=== PATIENT | female | born 1990 ===

== ENCOUNTER 2018-12-02 11:58 | Emergency (ER) | payer OTHER ==
[2018-12-02 12:12] VITALS: O2SAT 100
[2018-12-02] MEDS ORDERED: Sodium Chloride 0.9% 1,000 ML IV STA (13:01)
[2018-12-02 13:56] LABS: BASO % 0.4 % (0.0-2.0); EOS % 0.3 % (0.0-4.0); LYMPH # 2.8 K/uL (1.0-4.3); LYMPH % 30.3 % (20.0-40.0); MEAN CORPUSCULAR HEMOGLOBIN 30.3 pg (27.0-31.0); MEAN CORPUSCULAR HGB CONC 33.7 g/dL (33.0-37.0); MEAN PLATELET VOLUME 8.1 fl (7.2-11.7); MONO % 10.3 % (0.0-10.0); NEUT # 5.4 K/uL (1.8-7.0); NEUT % 58.7 % (50.0-75.0); NRBC % 0.1 % (0.0-0.0); RBC 4.62 Mil/uL (3.80-5.20); RED CELL DISTRIBUTION WIDTH 12.8 % (11.5-14.5); WHITE BLOOD COUNT 9.3 K/uL (4.8-10.8)
[2018-12-02 14:00] LABS: BARBITURATES, UR NEGATIVE (NEGATIVE); BENZODIAZEPINES, UR NEGATIVE (NEGATIVE); OPIATES, UR NEGATIVE (NEGATIVE); PHENCYCLIDINE, UR NEGATIVE (NEGATIVE)
[2018-12-02 14:05] LABS: BLOOD UREA NITROGEN 9 mg/dl (7-17); CALCIUM 9.6 mg/dL (8.4-10.2); GFR NON-AFRICAN AMERICAN > 60
--- NOTE | 2018-12-02 15:06 | ED PDOC ---
HPI: Headache Time Seen by Provider: 12/02/18 12:27 Chief Complaint (Nursing): Headache Chief Complaint (Provider): Headache History Per: Patient History/Exam Limitations: no limitations Onset/Duration Of Symptoms: Days (x14) Current Symptoms Are (Timing): Still Present Additional Complaint(s): 27 y/o female with no significant PMHx presents to the ED for evaluation of a headache, onset two weeks ago. Patient reports pain waxes and wanes in intensity but remains constant. Patient notes pain is located in the posterior head radiating down the neck and back along the spine. Patient reports of taking Ibuprofen for pain relief. Patient states on , she had a syncopal episode and was brought to the [place] ER and put in the psychiatric area where she did not have any workup or imaging done. Patient reports of being evaluated at a [facility] yesterday where she was told to come to the ER for further evaluation. 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 At this time, patient notes headache is associated with nausea and photophobia. Otherwise, patient denies fevers, history of migraines, weakness, numbness, vomiting, diarrhea, history of sudden onset headache and thunderclap headache at onset. PMD: Past Medical History Reviewed: Historical Data, Nursing Documentation, Vital Signs Vital Signs: Last Vital Signs Temp 98.2 F 12/02/18 12:09 Pulse 110 H 12/02/18 12:09 Resp 19 12/02/18 12:09 BP 113/65 12/02/18 12:09 Pulse Ox 100 12/02/18 12:09 - Medical History PMH: No Chronic Diseases - Surgical History Surgical History: No Surg Hx - Family History Family History: States: Unknown Family Hx - Home Medications Home Medications: Ambulatory Orders Medication Instructions Recorded Ibuprofen [Motrin] 600 mg PO TID 7 Days tab 12/02/18 - Allergies Allergies/Adverse Reactions: Allergies Allergy/AdvReac Type Severity Reaction Status Date / Time No Known Allergies Allergy Verified 12/02/18 12:18 Review of Systems ROS Statement: Except As Marked, All Systems Reviewed And Found Negative Gastrointestinal: Positive for: Nausea. Negative for: Vomiting, Diarrhea Musculoskeletal: Positive for: Neck Pain Neurological: Positive for: Headache, Other (SYNCOPE, PHOTOPHOBIA). Negative for: Weakness, Numbness Physical Exam - Reviewed Nursing Documentation Reviewed: Yes Vital Signs Reviewed: Yes - Physical Exam Appears: Positive for: No Acute Distress. Negative for: Uncomfortable (COMFORTABLE) Head Exam: Positive for: ATRAUMATIC, NORMOCEPHALIC. Negative for: NORMAL INSPECTION (Occipital lobe tenderness) Skin: Positive for: Normal Color, Warm, Dry Eye Exam: Positive for: Normal appearance, EOMI, PERRL ENT: Positive for: Normal ENT Inspection Neck: Positive for: Supple (paraspinal tenderness) Cardiovascular/Chest: Positive for: Regular Rate, Rhythm. Negative for: Murmur Respiratory: Positive for: Normal Breath Sounds. Negative for: Respiratory Distress Gastrointestinal/Abdominal: Positive for: Normal Exam, Soft. Negative for: Ten derness Back: Positive for: Vertebral Tenderness. Negative for: Normal Inspection, L CVA Tenderness, R CVA Tenderness Extremity: Positive for: Normal ROM. Negative for: Deformity Neurological/Psych: Positive for: Awake, Alert, Oriented (x3). Negative for: Motor/Sensory Deficits - Laboratory Results Result Diagrams: 12/02/18 11:45 12/02/18 11:45 Lab Results: Troponin I < 0.0120 ng/mL (0.00-0.120) 12/02/18 11:45 - ECG O2 Sat by Pulse Oximetry: 100 (RA) Pulse Ox Interpretation: Normal Medical Decision Making Medical Decision Making: Time: 1311 Impression: Headache, neck pain and back pain. Differentials include but not limited to brain mass, intracranial idiopathic hypertension, migraines and tension headaches. Plan: -- CT Head w/o Contrast -- EKG -- Urine Drug Screen -- Troponin I -- ED Urine -- ED Urine Dipstick -- CBC with Differentials -- Sodium Chloride IV 1000 mls/hr -- Reglan 10 mg IVP -- Toradol 30 mg IVP -- IV Insertion Time: 1500 -- Patient endorsed to Dr. Bender, pending CT, re-evaluation and final ER disposition. Scribe Attestation: Documented by Rupesh Chandler, acting as a scribe for Hunter Valle MD. Provider Scribe Attestation: All medical record entries made by the Scribe were at my direction and personally dictated by me. I have reviewed the chart and agree that the record accurately reflects my personal performance of the history, physical exam, medical decision making, and the department course for this patient. I have also personally directed, reviewed, and agree with the discharge instructions and disposition. Disposition - Clinical Impression Clinical Impression: Headache - Patient ED Disposition Is Patient to be Admitted: Transfer of Care Counseled Patient/Family Regarding: Studies Performed, Diagnosis - Disposition Referrals: [facility] [Outside] - 12/03/18 Disposition: Transfer of Care Disposition Time: 15:00 Condition: STABLE Additional Instructions: Return if not better in 3 days. Prescriptions: Ibuprofen [Motrin] 600 mg PO TID 7 Days tab Instructions: Headache, Adult Patient Signed Over To: Jaxon Bender Handoff Comments: pending CT, re-evaluation and final ER disposition.
--- NOTE | 2018-12-02 15:16 | ED PDOC ---
- Laboratory Results Result Diagrams: 12/02/18 11:45 12/02/18 11:45 Lab Results: Troponin I < 0.0120 ng/mL (0.00-0.120) 12/02/18 11:45 - ECG ECG: Positive for: Interpreted By Me, Viewed By Me ECG Rhythm: Positive for: Normal QRS, Normal ST Segment, Sinus Rhythm O2 Sat by Pulse Oximetry: 100 (RA) - Progress ED Course And Treament: 1612: Feels much better. AAOx3. Pain free. Tolerated PO. Ambulated with no issues. Fu with pcp. Medical Decision Making Medical Decision Making: Time: 1500 -- Patient endorsed to me by Dr. Valle, pending CT, re-evaluation and final ER disposition. Scribe Attestation: Documented by Rupesh Chandler, acting as a scribe for Jaxon Bender MD. Provider Scribe Attestation: All medical record entries made by the Scribe were at my direction and personally dictated by me. I have reviewed the chart and agree that the record accurately reflects my personal performance of the history, physical exam, medical decision making, and the department course for this patient. I have also personally directed, reviewed, and agree with the discharge instructions and disposition. Disposition - Clinical Impression Clinical Impression: Headache - POA Present On Arrival: None - Disposition Referrals: [facility] [Outside] - 12/03/18 Disposition: Routine/Home Disposition Time: 16:12 Condition: STABLE Additional Instructions: Return if not better in 3 days. Prescriptions: Ibuprofen [Motrin] 600 mg PO TID 7 Days tab Instructions: Headache, Adult
--- NOTE | 2018-12-02 15:39 | CT ---
Date of service: 12/02/2018 PROCEDURE: CT HEAD WITHOUT CONTRAST. HISTORY: headache COMPARISON: None available. TECHNIQUE: Axial computed tomography images were obtained through the head/brain without intravenous contrast. Radiation dose: Total exam DLP = 0.0 mGy-cm. This CT exam was performed using one or more of the following dose reduction techniques: Automated exposure control, adjustment of the mA and/or kV according to patient size, and/or use of iterative reconstruction technique. FINDINGS: HEMORRHAGE: No intracranial hemorrhage. BRAIN: No mass effect or edema. No atrophy or chronic microvascular ischemic changes. VENTRICLES: Unremarkable. No hydrocephalus. CALVARIUM: Unremarkable. PARANASAL SINUSES: Unremarkable as visualized. No significant inflammatory changes. MASTOID AIR CELLS: Unremarkable as visualized. No inflammatory changes. OTHER FINDINGS: None. IMPRESSION: Normal CT of the Head.
[2018-12-02 16:22] VITALS: BP 110/56; PULSE 76; RESP 16; TEMP 98.6
--- NOTE | 2018-12-02 19:56 | CARD ---
APPROVED REPORT Date of service: 12/02/2018 EKG Measurement Heart [id number] <Conclusion> Normal sinus rhythm Normal ECG
== END 2018-12-02 16:18 | disposition home or self-care (01) ==
LOC: H.ER 11:58
DX: R51 Headache (principal); I10 Essential (primary) hypertension
CPT/HCPCS: 70450; 80048; 80324; 80345; 80346; 80349; 80353; 80358; 80361; 81025; 83992; 84484; 85025; 93005; 96361; 96374; 96375; 99285; J1885; J2765; J7030